=== PATIENT | male | born 1945 | race Caucasian/White ===

== ENCOUNTER 2021-06-30 14:12 | Inpatient (IN) ==
[2021-06-30] MEDS: Nystatin POWDER 30 GM BOTTLE TP SCH (20:55)
[2021-06-30] MEDS: cephALEXin 500 MG CAPSULE PO SCH (20:55)
[2021-06-30] MEDS ORDERED: QUEtiapine Fumarate 25 MG TABLET PO SCH (21:00)
[2021-06-30] MEDS ORDERED: cloNIDine HCL 0.1 MG TABLET PO PRN (21:25)
[2021-07-01 04:50] LABS: Basophils # 0.1 K/mcL (0.0-0.2); Basophils % 0.7 %; Eosinophils # 0.4 K/mcL (0.0-0.6); Eosinophils % 5.4 %; Hematocrit 33.5 % (37.5-50.1); Hemoglobin 10.2 g/dL (12.9-16.9); Immature Granulocytes % 0.3 % (0-4); Lymphocytes # 1.2 K/mcL (0.6-4.6); Lymphocytes % 15.6 %; Mean Corpuscular HGB Conc 30.4 g/dL (31.6-35.5); Mean Corpuscular Hemoglobin 24.5 pg (28.0-33.3); Mean Corpuscular Volume 80.3 fL (83.0-100.0); Monocytes # 0.5 K/mcL (0.0-1.3); Monocytes % 6.6 %; Neutrophils # 5.4 K/mcL (1.6-8.9); Platelet Count 227 K/mcL (140-400); Red Blood Count 4.17 M/mcL (4.19-5.50); Red Cell Distribution Width 16.1 % (11.5-14.5); Segmented Neutrophils % 71.4 %; White Blood Count 7.6 K/mcL (4.3-11.1)
[2021-07-01 05:02] LABS: BUN/Creatinine Ratio 13 (6-26); Blood Urea Nitrogen 13 mg/dL (8-23); Calcium 8.5 mg/dL (8.6-10.3); Carbon Dioxide 29 mEq/L (23-29); Chloride 104 mEq/L (98-107); Glucose 97 mg/dL (70-105); Osmolality,Calculated 286 (280-300); Potassium 3.9 mEq/L (3.5-5.1); Sodium 138 mEq/L (136-145); eGFR For African Americans > 60 (> 60); eGFR For Non-African Americans > 60 (> 60)
[2021-07-01] MEDS: *HR* Enoxaparin 40 MG/0.4 ML SYRINGE SQ SCH (05:11)
[2021-07-01] MEDS ORDERED: amLODIPine 5 MG TABLET PO SCH (09:00)
[2021-07-01] MEDS: amLODIPine 5 MG TABLET PO SCH (09:38)
[2021-07-01] MEDS: Aspirin Enteric Coated 81 MG Tablet PO SCH (09:38)
[2021-07-01] MEDS: Losartan/HCTZ 50-12.5 TABLET PO SCH (09:38)
[2021-07-01] MEDS: cephALEXin 500 MG CAPSULE PO SCH ×3 (09:38→20:59)
[2021-07-01] MEDS: Nystatin POWDER 30 GM BOTTLE TP SCH ×2 (09:39→21:00)
[2021-07-01] MEDS: Ibuprofen 600 MG TABLET PO PRN (13:24)
[2021-07-02] MEDS: *HR* Enoxaparin 40 MG/0.4 ML SYRINGE SQ SCH (05:53)
[2021-07-02] MEDS: Losartan/HCTZ 50-12.5 TABLET PO SCH (08:33)
[2021-07-02] MEDS: amLODIPine 5 MG TABLET PO SCH (08:33)
[2021-07-02] MEDS: cephALEXin 500 MG CAPSULE PO SCH ×3 (08:33→20:51)
[2021-07-02] MEDS: Aspirin Enteric Coated 81 MG Tablet PO SCH (08:33)
[2021-07-02] MEDS: Nystatin POWDER 30 GM BOTTLE TP SCH ×2 (08:34→20:52)
[2021-07-02] MEDS: Famotidine 20 MG TABLET PO SCH ×2 (11:17→20:52)
[2021-07-02] MEDS: Ibuprofen 600 MG TABLET PO PRN (20:55)
[2021-07-03] MEDS: *HR* Enoxaparin 40 MG/0.4 ML SYRINGE SQ SCH (05:20)
[2021-07-03] MEDS: Ibuprofen 600 MG TABLET PO PRN (05:20)
[2021-07-03] MEDS: cephALEXin 500 MG CAPSULE PO SCH ×3 (08:31→21:33)
[2021-07-03] MEDS: Aspirin Enteric Coated 81 MG Tablet PO SCH (08:31)
[2021-07-03] MEDS: Losartan/HCTZ 50-12.5 TABLET PO SCH (08:32)
[2021-07-03] MEDS: Famotidine 20 MG TABLET PO SCH ×2 (08:32→21:34)
[2021-07-03] MEDS: Nystatin POWDER 30 GM BOTTLE TP SCH ×2 (08:32→21:35)
[2021-07-03] MEDS: amLODIPine 5 MG TABLET PO SCH (08:32)
[2021-07-04] MEDS: *HR* Enoxaparin 40 MG/0.4 ML SYRINGE SQ SCH (06:31)
[2021-07-04] MEDS: Aspirin Enteric Coated 81 MG Tablet PO SCH (08:32)
[2021-07-04] MEDS: cephALEXin 500 MG CAPSULE PO SCH ×3 (08:32→20:55)
[2021-07-04] MEDS: Losartan/HCTZ 50-12.5 TABLET PO SCH (08:32)
[2021-07-04] MEDS: Famotidine 20 MG TABLET PO SCH ×2 (08:32→20:56)
[2021-07-04] MEDS: amLODIPine 5 MG TABLET PO SCH (08:32)
[2021-07-04] MEDS: Nystatin POWDER 30 GM BOTTLE TP SCH ×2 (08:32→20:56)
[2021-07-04] MEDS: Ibuprofen 600 MG TABLET PO PRN (17:47)
[2021-07-05] MEDS: *HR* Enoxaparin 40 MG/0.4 ML SYRINGE SQ SCH (06:13)
[2021-07-05 08:18] LABS: Basophils % 0.5 %; Eosinophils # 0.3 K/mcL (0.0-0.6); Hematocrit 34.8 % (37.5-50.1); Hemoglobin 10.7 g/dL (12.9-16.9); Immature Granulocytes % 0.3 % (0-4); Lymphocytes # 0.8 K/mcL (0.6-4.6); Lymphocytes % 12.6 %; Mean Corpuscular HGB Conc 30.7 g/dL (31.6-35.5); Mean Corpuscular Hemoglobin 24.8 pg (28.0-33.3); Mean Corpuscular Volume 80.6 fL (83.0-100.0); Mean Platelet Volume 9.7 fL (9.4-12.4); Monocytes # 0.4 K/mcL (0.0-1.3); Monocytes % 6.6 %; Neutrophils # 4.8 K/mcL (1.6-8.9); Platelet Count 239 K/mcL (140-400); Red Blood Count 4.32 M/mcL (4.19-5.50); Red Cell Distribution Width 16.2 % (11.5-14.5); White Blood Count 6.4 K/mcL (4.3-11.1)
[2021-07-05] MEDS: amLODIPine 5 MG TABLET PO SCH (08:22)
[2021-07-05] MEDS: Losartan/HCTZ 50-12.5 TABLET PO SCH (08:22)
[2021-07-05] MEDS: Famotidine 20 MG TABLET PO SCH ×2 (08:22→21:02)
[2021-07-05] MEDS: Aspirin Enteric Coated 81 MG Tablet PO SCH (08:22)
[2021-07-05] MEDS: Ibuprofen 600 MG TABLET PO PRN ×2 (08:23→21:02)
[2021-07-05 08:35] LABS: BUN/Creatinine Ratio 22 (6-26); Blood Urea Nitrogen 21 mg/dL (8-23); Calcium 8.7 mg/dL (8.6-10.3); Carbon Dioxide 29 mEq/L (23-29); Chloride 103 mEq/L (98-107); Glucose 89 mg/dL (70-105); Osmolality,Calculated 288 (280-300); Potassium 4.1 mEq/L (3.5-5.1); Sodium 138 mEq/L (136-145); eGFR For African Americans > 60 (> 60); eGFR For Non-African Americans > 60 (> 60)
[2021-07-05] MEDS: Nystatin POWDER 30 GM BOTTLE TP SCH ×2 (16:42→21:02)
[2021-07-05] MEDS: QUEtiapine Fumarate 25 MG TABLET PO SCH (21:02)
[2021-07-06] MEDS: Aspirin Enteric Coated 81 MG Tablet PO SCH (07:50)
[2021-07-06] MEDS: Losartan/HCTZ 50-12.5 TABLET PO SCH (07:50)
[2021-07-06] MEDS: *HR* Enoxaparin 40 MG/0.4 ML SYRINGE SQ SCH (07:50)
[2021-07-06] MEDS: Famotidine 20 MG TABLET PO SCH ×2 (07:51→20:38)
[2021-07-06] MEDS: Nystatin POWDER 30 GM BOTTLE TP SCH ×2 (07:51→20:38)
[2021-07-06] MEDS: amLODIPine 5 MG TABLET PO SCH (07:51)
[2021-07-06] MEDS ORDERED: haloperidoL 1 MG TABLET PO PRN (13:13)
[2021-07-06 15:04] LABS: BUN/Creatinine Ratio 27 (6-26); Blood Urea Nitrogen 29 mg/dL (8-23); Carbon Dioxide 26 mEq/L (23-29); Chloride 101 mEq/L (98-107); Glucose 98 mg/dL (70-105); Osmolality,Calculated 284 (280-300); Potassium 4.5 mEq/L (3.5-5.1); Sodium 134 mEq/L (136-145); eGFR For African Americans > 60 (> 60); eGFR For Non-African Americans > 60 (> 60)
[2021-07-06] MEDS: Ibuprofen 600 MG TABLET PO PRN (20:38)
[2021-07-06] MEDS: QUEtiapine Fumarate 25 MG TABLET PO SCH (20:38)
[2021-07-07 04:51] LABS: Basophils # 0.1 K/mcL (0.0-0.2); Basophils % 0.6 %; Eosinophils # 0.4 K/mcL (0.0-0.6); Eosinophils % 4.7 %; Hematocrit 33.2 % (37.5-50.1); Hemoglobin 10.2 g/dL (12.9-16.9); Immature Granulocytes % 0.4 % (0-4); Lymphocytes # 1.5 K/mcL (0.6-4.6); Lymphocytes % 19.1 %; Mean Corpuscular HGB Conc 30.7 g/dL (31.6-35.5); Mean Corpuscular Hemoglobin 24.9 pg (28.0-33.3); Mean Corpuscular Volume 81.2 fL (83.0-100.0); Mean Platelet Volume 9.7 fL (9.4-12.4); Monocytes # 0.7 K/mcL (0.0-1.3); Monocytes % 8.3 %; Neutrophils # 5.4 K/mcL (1.6-8.9); Platelet Count 214 K/mcL (140-400); Red Blood Count 4.09 M/mcL (4.19-5.50); Red Cell Distribution Width 16.5 % (11.5-14.5); Segmented Neutrophils % 66.9 %; White Blood Count 8.1 K/mcL (4.3-11.1)
[2021-07-07 05:07] LABS: Alanine Aminotransferase 8 Units/L (7-52); Albumin 3.2 g/dL (3.5-5.7); Albumin/Globulin Ratio 1.1 (1.1-2.2); Alkaline Phosphatase 52 Units/L (34-104); Aspartate Amino Transferase 13 Units/L (13-39); BUN/Creatinine Ratio 22 (6-26); Bilirubin,Total 0.6 mg/dL (0.3-1.0); Blood Urea Nitrogen 29 mg/dL (8-23); Calcium 8.6 mg/dL (8.6-10.3); Carbon Dioxide 30 mEq/L (23-29); Chloride 103 mEq/L (98-107); Globulin 2.9 g/dL (2.4-3.5); Glucose 93 mg/dL (70-105); Osmolality,Calculated 292 (280-300); Potassium 4.1 mEq/L (3.5-5.1); Sodium 138 mEq/L (136-145); Total Protein 6.1 g/dL (6.4-8.9); eGFR For African Americans > 60 (> 60); eGFR For Non-African Americans 54 (> 60)
[2021-07-07] MEDS: *HR* Enoxaparin 40 MG/0.4 ML SYRINGE SQ SCH (08:32)
[2021-07-07] MEDS: Aspirin Enteric Coated 81 MG Tablet PO SCH (08:33)
[2021-07-07] MEDS: Famotidine 20 MG TABLET PO SCH ×2 (08:34→21:03)
[2021-07-07] MEDS: amLODIPine 5 MG TABLET PO SCH (08:35)
[2021-07-07] MEDS: Nystatin POWDER 30 GM BOTTLE TP SCH ×2 (08:35→21:04)
[2021-07-07] MEDS: QUEtiapine Fumarate 25 MG TABLET PO SCH (21:03)
[2021-07-07] MEDS: Ibuprofen 600 MG TABLET PO PRN (21:03)
[2021-07-08 08:08] VITALS: BP 126/79; PULSE 62; RESP 16; TEMP 982; O2SAT 97
[2021-07-08] MEDS: *HR* Enoxaparin 40 MG/0.4 ML SYRINGE SQ SCH (08:30)
[2021-07-08] MEDS: amLODIPine 5 MG TABLET PO SCH (08:30)
[2021-07-08] MEDS: Aspirin Enteric Coated 81 MG Tablet PO SCH (08:31)
[2021-07-08] MEDS: Nystatin POWDER 30 GM BOTTLE TP SCH (08:31)
[2021-07-08] MEDS: Famotidine 20 MG TABLET PO SCH (08:31)
== END 2021-07-08 15:35 | DRG 689 ==
LOC: INPGRE 17:35
PROVIDERS: ADMIT Family Medicine; ATTEND Family Medicine